=== PATIENT | female | born 1955 ===

== ENCOUNTER 2022-01-17 10:19 | Outpatient (CLI) | payer OTHER | END 2022-01-17 23:59 | disposition home or self-care (01) | LOC: LAB 10:19 | PROVIDERS: ATTEND Orthopaedic Surgery | DX: Z01.812 Encounter for preprocedural laboratory examination (principal); Z20.822 Contact with and (suspected) exposure to COVID-19 ==

== ENCOUNTER 2022-01-18 10:02 | Outpatient (CLI) | payer OTHER ==
[2022-01-18] MEDS ORDERED: POTASSIUM CHLORIDE 20 MEQ TAB.PRT.SR PO ONE (10:03)
[2022-01-18 11:07] LABS: HEMATOCRIT 41.7 % (31.2-41.9); MEAN CORPUSCULAR HEMOGLOBIN 30.9 uug (24.7-32.8); MEAN CORPUSCULAR VOLUME 88.7 fL (75.5-95.3); PLATELET COUNT (AUTO) 247 K/uL (179-408)
[2022-01-18 11:09] LABS: *BILIRUBIN,URIN NEGATIVE (NEGATIVE); *CLARITY,URINE CLEAR (CLEAR); *COLOR,URINE YELLOW (YELLOW); *KETONES,URINE NEGATIVE (NEGATIVE); *UROBILINOGEN,URINE 0.2 E.U./dl (NORMAL); LEUKOCYTE ESTERASE ,URINE TRACE (NEGATIVE); NITRITE, URINE NEGATIVE (NEGATIVE); UGLUCOSE NEGATIVE (NEGATIVE)
[2022-01-18 11:15] LABS: CREATININE 0.6 mg/dL (0.6-1.3); POTASSIUM 3.3 mmol/L (3.5-5.1)
[2022-01-18 11:17] LABS: *BLOOD, URINE TRACE (NEGATIVE)
[2022-01-18 11:21] LABS: BILIRUBIN,TOTAL 0.4 mg/dL (0.2-1.0); TOTAL PROTEIN, SERUM 7.4 g/dL (6.4-8.2)
[2022-01-18 15:45] LABS: BACTERIA,URINE FEW /HPF (NONE SEEN); SQUAMOUS EPITHELIAL CELL,UR FEW /HPF (NONE SEEN); URINE AMORPHOUS URATE MODERATE /HPF
== END 2022-01-18 23:59 | disposition home or self-care (01) ==
LOC: LAB 10:02 → DS 01-19 06:09
PROVIDERS: ATTEND Internal Medicine
DX: Z01.818 Encounter for other preprocedural examination (principal); S83.241A Other tear of medial meniscus, current injury, right knee, initial encounter; X58.XXXA Exposure to other specified factors, initial encounter; R06.09 Other forms of dyspnea
CPT/HCPCS: 36415; 71045; 85025; 85730; A4663; J7120

== ENCOUNTER 2022-01-19 06:57 | Day surgery (SDC) | payer OTHER ==
[2022-01-19] MEDS ORDERED: SEVOFLURANE 250 ML BOTTLE IH ONE (06:58)
[2022-01-19] MEDS ORDERED: PROPOFOL 200 MG/20 ML BOTTLE IV ONE (06:58)
[2022-01-19] MEDS ORDERED: hydrALAZINE HCL 20 MG/1 ML VIAL IM ONE (06:58)
[2022-01-19] MEDS ORDERED: LIDOCAINE-MPF 2% 5 ML VIAL IJ ONE (06:58)
[2022-01-19] MEDS ORDERED: DEXAMETHASONE SOD PHOSPHATE 4 MG INJ IV ONE (06:58)
[2022-01-19] MEDS ORDERED: CEFAZOLIN 1 G VIAL IM ONE (06:58)
[2022-01-19] MEDS ORDERED: ONDANSETRON 4 MG/2 ML VIAL IV ONE (06:58)
[2022-01-19] MEDS ORDERED: KETOROLAC TROMETHAMINE 30 MG INJ IM ONE (06:58)
[2022-01-19] MEDS ORDERED: MORPHINE SULFATE PF 10 MG/10 ML AMPUL IV ONE (07:44)
[2022-01-19] MEDS ORDERED: BUPIVACAINE 0.25% 30 ML VIAL ONE (07:48)
[2022-01-19] MEDS ORDERED: HYDROMORPHONE 2 MG/1 ML DISP.SYRIN ONE (08:04)
[2022-01-19] MEDS ORDERED: HYDROMORPHONE 1 MG/1 ML DISP.SYRIN ONE (09:33)
[2022-01-19] MEDS ORDERED: ONDANSETRON 4 MG/2 ML VIAL ONE (09:35)
== END 2022-01-19 13:15 | disposition home or self-care (01) ==
LOC: DS 06:57
PROVIDERS: ATTEND Orthopaedic Surgery
DX: S83.271A Complex tear of lateral meniscus, current injury, right knee, initial encounter (principal); S83.211A Bucket-handle tear of medial meniscus, current injury, right knee, initial encounter; M94.261 Chondromalacia, right knee; M65.88 Other synovitis and tenosynovitis, other site; Z79.899 Other long term (current) drug therapy; Z98.890 Other specified postprocedural states; X58.XXXA Exposure to other specified factors, initial encounter; Y93.89 Activity, other specified; Y92.89 Other specified places as the place of occurrence of the external cause; Y99.8 Other external cause status
CPT/HCPCS: 29876; 29880; J3490 ×2; J0690; J1100; J0360; J1885; J2405 ×2; J1170 ×2; J2274; J7120; J7040